=== PATIENT | male | born 1955 | race Hispanic/Latino ===

== ENCOUNTER 2020-01-05 21:13 | Emergency (ER) | payer MEDICARE ==
[2020-01-05 22:10] LABS: BASOPHILS % (AUTO) 0.5 % (0.0-5.0); MEAN CORPUSCULAR HEMOGLOBIN 32.3 pg (27.0-33.0); MEAN CORPUSCULAR HGB CONC 32.8 g/dL (32.0-36.0); MEAN CORPUSCULAR VOLUME 98.8 fL (79-99); MONOCYTES % (AUTO) 13.9 % (3.0-13.0); NEUTROPHILS % (AUTO) 53.5 % (40.0-77.0); PLATELET COUNT (AUTO) 123 K/uL (130-400); RED BLOOD CELL COUNT(AUTO) 4.05 MIL/uL (4.50-6.20); RED CELL DISTRIBUTION WIDTH 13.1 % (11.0-15.5); WHITE BLOOD COUNT (AUTO) 7.5 K/uL (4.8-10.8)
[2020-01-05 22:24] LABS: ALBUMIN 3.9 g/dL (3.5-5.0); BILIRUBIN,TOTAL 0.8 mg/dL (0.2-1.0); POTASSIUM 4.1 mmol/L (3.5-5.1); TOTAL PROTEIN, SERUM 7.5 g/dL (6.0-8.3)
[2020-01-05 22:37] LABS: CREATININE 10.7 mg/dL (0.5-1.5)
[2020-01-05] MEDS ORDERED: CLINDAMYCIN 600 MG/D5% WATER 50 ML IV ONE (23:06)
[2020-01-05 23:12] LABS: ERYTHROCYTE SEDIMENTATION RATE 2 MM/HR (0-20)
== END 2020-01-05 23:32 | disposition home or self-care (01) ==
LOC: EDH 21:13
DX: E11.621 Type 2 diabetes mellitus with foot ulcer (principal); I12.0 Hypertensive chronic kidney disease with stage 5 chronic kidney disease or end stage renal disease; L97.519 Non-pressure chronic ulcer of other part of right foot with unspecified severity; Z99.2 Dependence on renal dialysis; E11.22 Type 2 diabetes mellitus with diabetic chronic kidney disease; N18.6 End stage renal disease; Z87.891 Personal history of nicotine dependence; Z88.8 Allergy status to other drugs, medicaments and biological substances
CPT/HCPCS: 36415; 73630; 80053; 82948; 85025; 85651; 87040 ×2; 96365; 99284; J3490; 96374

== ENCOUNTER 2021-01-29 20:47 | Emergency (ER) | payer MEDICARE ==
[~2021-01-29] VITALS: Ht 167.6 cm; Wt 90.7 kg
[~2021-01-29 20:47] MED LIST: CALC667C10 PO; CILO50TA PO; FOLI1TAB85 PO; LACT10SO5 PO; METO5 PO; PANT40TA55 PO; ROPI3TAB PO; SEVE800T7 PO
[2021-01-29 20:52] VITALS: BP 177/75
== END 2021-01-29 21:26 | disposition left against medical advice (07) ==
LOC: EDH 20:47
DX: I10 Essential (primary) hypertension (principal); Z53.21 Procedure and treatment not carried out due to patient leaving prior to being seen by health care provider
CPT/HCPCS: 93005

== ENCOUNTER 2021-04-01 16:51 | Emergency (ER) | payer MEDICARE ==
[~2021-04-01] VITALS: Ht 167.6 cm; Wt 89.8 kg
[2021-04-01] MEDS ORDERED: MUPI15C TP (18:24)
[2021-04-01] MEDS ORDERED: CLOT12CR TP (18:24)
[2021-04-01] MEDS ORDERED: DOXY-336 PO (18:24)
[2021-04-01 18:34] VITALS: BP 155/87
[2021-04-01] MEDS ORDERED: DOXYCYCLINE HYCLATE 100 MG TABLET PO SCH (19:30)
== END 2021-04-01 18:42 | disposition home or self-care (01) ==
LOC: EDH 16:51
DX: S91.104A Unspecified open wound of right lesser toe(s) without damage to nail, initial encounter (principal); B35.6 Tinea cruris; I12.0 Hypertensive chronic kidney disease with stage 5 chronic kidney disease or end stage renal disease; E11.22 Type 2 diabetes mellitus with diabetic chronic kidney disease; N18.6 End stage renal disease; Z79.899 Other long term (current) drug therapy; Z88.8 Allergy status to other drugs, medicaments and biological substances; X58.XXXA Exposure to other specified factors, initial encounter; Y93.89 Activity, other specified; Y92.89 Other specified places as the place of occurrence of the external cause; Y99.9 Unspecified external cause status

== ENCOUNTER 2021-05-11 11:51 | Emergency (ER) | payer MEDICARE ==
[~2021-05-11] VITALS: Ht 172.7 cm; Wt 106.6 kg
[~2021-05-11 11:51] MED LIST changes: +CLOT12CR TP; +DOXY-336 PO; +MUPI15C TP
[2021-05-11 13:16] LABS: BASOPHILS % (AUTO) 0.8 % (0.0-5.0); EOSINOPHILS % (AUTO) 2.2 % (0.0-8.0); HEMATOCRIT 34.7 % (42-54); LYMPHOCYTES % (AUTO) 16.5 % (21.0-51.0); MEAN CORPUSCULAR HEMOGLOBIN 32.1 pg (27.0-33.0); MEAN CORPUSCULAR HGB CONC 31.7 g/dL (32.0-36.0); MEAN CORPUSCULAR VOLUME 101.2 fL (79-99); MONOCYTES % (AUTO) 10.1 % (3.0-13.0); NEUTROPHILS % (AUTO) 70.2 % (40.0-77.0); PLATELET COUNT (AUTO) 116 K/uL (130-400); RED BLOOD CELL COUNT(AUTO) 3.43 MIL/uL (4.50-6.20); RED CELL DISTRIBUTION WIDTH 14.1 % (11.0-15.5); WHITE BLOOD COUNT (AUTO) 6.4 K/uL (4.8-10.8)
[2021-05-11 13:34] VITALS: BP 159/62
[2021-05-11 13:35] LABS: ALBUMIN 3.4 g/dL (3.5-5.0); BILIRUBIN,TOTAL 1.2 mg/dL (0.2-1.0); POTASSIUM 4.3 mmol/L (3.5-5.1); TOTAL PROTEIN, SERUM 6.2 g/dL (6.0-8.3)
[2021-05-11 13:48] LABS: CREATININE 8.9 mg/dL (0.5-1.5)
== END 2021-05-11 15:33 | disposition home or self-care (01) ==
LOC: EDH 11:51
DX: U07.1 COVID-19 (principal); E11.9 Type 2 diabetes mellitus without complications; I10 Essential (primary) hypertension; Z88.8 Allergy status to other drugs, medicaments and biological substances; Z99.2 Dependence on renal dialysis
CPT/HCPCS: 36415; 80053; 84484; 85025; 87635; 93005; 99284; C9803

== ENCOUNTER 2021-05-20 01:20 | Emergency (ER) | payer MEDICARE | END 2021-05-20 02:46 | disposition left against medical advice (07) | LOC: EDH 01:20 | DX: I10 Essential (primary) hypertension (principal); Z53.21 Procedure and treatment not carried out due to patient leaving prior to being seen by health care provider ==